=== PATIENT | female | born 1985 | race Caucasian/White ===

== ENCOUNTER 2016-07-24 15:01 | Emergency (ER) | payer SELFPAY ==
[~2016-07-24] VITALS: Ht 167.6 cm; Wt 70.5 kg
[~2016-07-24 15:01] MED LIST: ATIVAN 0.50.5 MG/TAB PO; BACTRIM DS 8001 TAB PO; CELEXA 20MG20 MG/TAB PO; CELEXA10 MG PO; CEPHALEXIN500 M1 PO; CLEOCIN HC150 MG/CAP PO; FLEXERIL 1010 MG/TAB PO; LORTAB 5/500 501 TAB PO; MOTRIN 600600 MG/TAB PO; NAPROSYN500 MG PO; NO HOME MEDICATIONS; NORCO 325 MG-51 TAB PO; PRENATAL VITAMI1 TA5 PO; SEPTRA DS 8001 TAB PO; VALIUM 5MG T5 MG/TAB PO
[2016-07-24 15:03] VITALS: BP 134/67; TEMP 98.3
[2016-07-24 15:47] LABS: BASO % 0.3 % (0.0-2.0); EOS % 0.4 % (0-4.0); GRAN # 3.1 (1.4-6.5); GRAN % 44.7 % (42.2-75.2); HEMATOCRIT 44.2 % (37.0-47.0); HEMOGLOBIN 15.8 g/dl (12.5-16.0); LYMPH # 3.5 (1.2-3.4); LYMPH % 50.4 % (20.0-51.0); MEAN CELL VOLUME 107 fl (80.0-100.0); MEAN CORPUSCULAR HEMOGLOBIN 38 pg (27.0-31.0); MEAN CORPUSCULAR HGB CONC 36 g/dl (33.0-37.0); MEAN PLATELET VOLUME 10.1 fl (7.4-10.4); MONO # 0.3 (0.1-0.6); MONO % 4.1 % (1.7-9.3); PLATELET COUNT 144 K/mm3 (130-400); RED BLOOD COUNT 4.13 M/mm3 (4.10-5.30); REDCELL DISTRIBUTION WIDTH-CV 12.5 % (11.5-14.5); WHITE BLOOD COUNT 6.9 K/mm3 (4.8-10.8)
[2016-07-24 15:58] LABS: ADJUSTED CALCIUM 8.4 mg/dL (8.4-10.2); ALANINE AMINOTRANSFERASE 52 U/L (9-52); ALBUMIN 4.5 gm/dL (3.5-5.0); ALKALINE PHOSPHATASE 126 U/L (50-136); ANION GAP 19 mmol/L (7-16); BILIRUBIN,TOTAL 1.2 mg/dL (0.0-1.0); BLOOD UREA NITROGEN 3 mg/dL (7-17); CALCIUM 8.8 mg/dL (8.4-10.2); CARBON DIOXIDE 24 mmol/L (22-30); CHLORIDE 103 mmol/L (98-107); CREATININE, serum 0.56 mg/dL (0.52-1.25); GLUCOSE 77 mg/dL (74-106); LIPASE 153 U/L (23-300); POTASSIUM 3.9 mmol/L (3.4-5.0); SODIUM 146 mmol/L (137-145); TOTAL PROTEIN 7.5 gm/dL (6.4-8.2)
[2016-07-24 15:59] LABS: C-REACTIVE PROTEIN < 0.5 mg/dL (0.0-0.9)
[2016-07-24 16:03] LABS: PH 6 (5-8); URINE APPEARANCE Clear; URINE BACTERIA Rare /hpf; URINE BILIRUBIN Negative (NEGATIVE); URINE BLOOD Negative (NEGATIVE); URINE COLOR Yellow; URINE GLUCOSE Negative (NEGATIVE); URINE KETONE Trace (NEGATIVE); URINE RBC 0-2 /hpf; URINE UROBILINOGEN Negative (NEGATIVE); URINE WBC 0-2 /hpf
[2016-07-24] MEDS ORDERED: CEPHALEXIN500 M1 PO (17:22)
[2016-07-24 17:29] VITALS: PULSE 78
== END 2016-07-24 17:36 | disposition home or self-care (01) ==
LOC: COL.ER 15:01
PROVIDERS: Emergency Medicine
DX: K59.00 Constipation, unspecified (principal); J02.0 Streptococcal pharyngitis
CPT/HCPCS: J2405; J7030

== ENCOUNTER 2016-07-27 14:12 | Emergency (ER) | payer SELFPAY ==
[~2016-07-27] VITALS: Ht 167.6 cm; Wt 71.8 kg
[2016-07-27 14:14] VITALS: TEMP 98.1
[2016-07-27 16:03] VITALS: BP 127/88; PULSE 77
== END 2016-07-27 16:05 | disposition home or self-care (01) ==
LOC: COL.ER 14:12
DX: K59.00 Constipation, unspecified (principal); J02.0 Streptococcal pharyngitis

== ENCOUNTER 2016-10-03 02:21 | Emergency (ER) | payer SELFPAY ==
[~2016-10-03] VITALS: Ht 167.6 cm; Wt 70.0 kg
[2016-10-03 02:26] VITALS: TEMP 97.1
[2016-10-03 05:10] LABS: PH 7 (5-8); SQUAMOUS EPITHELIAL 0-2 /hpf; URINE APPEARANCE Clear; URINE BACTERIA None Seen /hpf; URINE BILIRUBIN Negative (NEGATIVE); URINE BLOOD Negative (NEGATIVE); URINE COLOR Straw; URINE GLUCOSE Negative (NEGATIVE); URINE KETONE Negative (NEGATIVE); URINE RBC None Seen /hpf; URINE UROBILINOGEN Negative (NEGATIVE); URINE WBC 0-2 /hpf
[2016-10-03 05:14] LABS: HEMATOCRIT 35.7 % (37.0-47.0); HEMOGLOBIN 12.7 g/dl (12.5-16.0); MEAN CELL VOLUME 109 fl (80.0-100.0); MEAN CORPUSCULAR HEMOGLOBIN 39 pg (27.0-31.0); MEAN CORPUSCULAR HGB CONC 36 g/dl (33.0-37.0); PLATELET COUNT 109 K/mm3 (130-400); RED BLOOD COUNT 3.27 M/mm3 (4.10-5.30); REDCELL DISTRIBUTION WIDTH-CV 14.4 % (11.5-14.5); WHITE BLOOD COUNT 2.8 K/mm3 (4.8-10.8)
[2016-10-03 05:15] LABS: ADD PATHOLOGY DIFF REVIEW NO
[2016-10-03 05:24] LABS: ADJUSTED CALCIUM 8.9 mg/dL (8.4-10.2); ALANINE AMINOTRANSFERASE 49 U/L (9-52); ALBUMIN 4.3 gm/dL (3.5-5.0); ALKALINE PHOSPHATASE 121 U/L (50-136); ANION GAP 16 mmol/L (7-16); BILIRUBIN,TOTAL 0.6 mg/dL (0.0-1.0); BLOOD UREA NITROGEN 5 mg/dL (7-17); CALCIUM 9.1 mg/dL (8.4-10.2); CARBON DIOXIDE 27 mmol/L (22-30); CHLORIDE 103 mmol/L (98-107); CREATININE, serum 0.51 mg/dL (0.52-1.25); GLUCOSE 82 mg/dL (74-106); LIPASE 106 U/L (23-300); POTASSIUM 3.9 mmol/L (3.4-5.0); SODIUM 146 mmol/L (137-145); TOTAL PROTEIN 7.1 gm/dL (6.4-8.2)
[2016-10-03 05:25] LABS: C-REACTIVE PROTEIN < 0.5 mg/dL (0.0-0.9)
[2016-10-03 05:31] LABS: BAND 8 % (0-10); METAMYELOCYTE 2 % (0-0); NEUTROPHILS 22 % (42.0-75.2); TOTAL CELLS COUNTED 102
[2016-10-03 05:32] LABS: STOMATOCYTE 1+; TARGET CELLS 2+
[2016-10-03 05:33] LABS: ANISOCYTOSIS 2+; POIKILOCYTOSIS 2+
[2016-10-03] MEDS ORDERED: PROTONIX 40MG T40 MG PO (05:54)
[2016-10-03 06:01] VITALS: BP 130/82; PULSE 78
== END 2016-10-03 06:02 | disposition home or self-care (01) ==
LOC: COL.ER 02:21
PROVIDERS: Emergency Medicine
DX: R10.10 Upper abdominal pain, unspecified (principal); D72.819 Decreased white blood cell count, unspecified; D72.820 Lymphocytosis (symptomatic); F17.210 Nicotine dependence, cigarettes, uncomplicated; Z32.02 Encounter for pregnancy test, result negative; Z90.49 Acquired absence of other specified parts of digestive tract

== ENCOUNTER 2017-10-20 08:11 | Emergency (ER) | payer SELFPAY ==
[~2017-10-20] VITALS: Ht 167.6 cm; Wt 70.9 kg
[~2017-10-20 08:11] MED LIST changes: +PROTONIX 40MG T40 MG PO
[2017-10-20 08:16] VITALS: TEMP 98.3
[2017-10-20 08:47] LABS: BASO % 0.2 % (0.0-2.0); GRAN # 5.9 (1.4-6.5); GRAN % 64.2 % (42.2-75.2); HEMATOCRIT 42.7 % (37.0-47.0); HEMOGLOBIN 15.8 g/dl (12.5-16.0); LYMPH # 2.8 (1.2-3.4); LYMPH % 29.8 % (20.0-51.0); MEAN CELL VOLUME 100 fl (80.0-100.0); MEAN CORPUSCULAR HEMOGLOBIN 37 pg (27.0-31.0); MEAN CORPUSCULAR HGB CONC 37 g/dl (33.0-37.0); MEAN PLATELET VOLUME 9.6 fl (7.4-10.4); MONO # 0.5 (0.1-0.6); MONO % 5.6 % (1.7-9.3); PLATELET COUNT 241 K/mm3 (130-400); RED BLOOD COUNT 4.28 M/mm3 (4.10-5.30); REDCELL DISTRIBUTION WIDTH-CV 12.9 % (11.5-14.5)
[2017-10-20 08:53] LABS: ALBUMIN 4.9 gm/dL (3.5-5.0); BILIRUBIN,TOTAL 0.9 mg/dL (0.0-1.0); CALCIUM 9.5 mg/dL (8.4-10.2); CREATININE, serum 0.6 mg/dL (0.52-1.25); MAGNESIUM 1.4 mg/dL (1.6-2.3); POTASSIUM 3.7 mmol/L (3.4-5.0); TOTAL PROTEIN 8.5 gm/dL (6.4-8.2)
[2017-10-20 09:54] LABS: COLLECTION METHOD CLEAN CATCH
[2017-10-20 10:00] LABS: MUCOUS Present /lpf; PH 7 (5-8); SQUAMOUS EPITHELIAL 0-2 /hpf; URINE APPEARANCE Clear; URINE BACTERIA None Seen /hpf; URINE BILIRUBIN Negative (NEGATIVE); URINE BLOOD Negative (NEGATIVE); URINE COLOR Yellow; URINE GLUCOSE Negative (NEGATIVE); URINE KETONE 2+ (NEGATIVE); URINE LEUKOCYTE ESTERASE Negative (NEGATIVE); URINE NITRATE Negative (NEGATIVE); URINE PROTEIN(semi-quant) 2+ (NEGATIVE); URINE RBC 0-2 /hpf; URINE UROBILINOGEN Negative (NEGATIVE)
[2017-10-20] MEDS ORDERED: ZOFRAN ODT4 MG PO (11:53)
[2017-10-20 12:25] VITALS: BP 128/69; PULSE 72
== END 2017-10-20 12:27 | disposition home or self-care (01) ==
LOC: COL.ER 08:11
PROVIDERS: Nurse Practitioner
DX: F10.239 Alcohol dependence with withdrawal, unspecified (principal); R11.10 Vomiting, unspecified; F17.210 Nicotine dependence, cigarettes, uncomplicated; F12.90 Cannabis use, unspecified, uncomplicated
CPT/HCPCS: J2060; J2405; J2550; J7030

== ENCOUNTER → 2018-03-16 | Outpatient (CLI) | payer SELFPAY ==
[~2018-03-16] MED LIST changes: +ZOFRAN ODT4 MG PO
[2018-03-16 08:10] LABS: COLLECTION METHOD CLEAN CATCH
[2018-03-16 08:14] LABS: MEAN CELL VOLUME 107 fl (80.0-100.0); MEAN CORPUSCULAR HEMOGLOBIN 38 pg (27.0-31.0); MEAN CORPUSCULAR HGB CONC 36 g/dl (33.0-37.0); PLATELET COUNT 94 K/mm3 (130-400); RED BLOOD COUNT 3.14 M/mm3 (4.10-5.30); REDCELL DISTRIBUTION WIDTH-CV 12.6 % (11.5-14.5)
[2018-03-16 08:18] LABS: HEMATOCRIT 33.7 % (37.0-47.0)
[2018-03-16 08:22] LABS: MUCOUS Present /lpf; PH 7 (5-8); URINE APPEARANCE Clear; URINE BACTERIA None Seen /hpf; URINE BILIRUBIN Negative (NEGATIVE); URINE BLOOD 1+ (NEGATIVE); URINE COLOR Yellow; URINE GLUCOSE Negative (NEGATIVE); URINE KETONE Negative (NEGATIVE); URINE LEUKOCYTE ESTERASE Negative (NEGATIVE); URINE NITRATE Negative (NEGATIVE); URINE PROTEIN(semi-quant) Negative (NEGATIVE); URINE RBC 0-2 /hpf; URINE UROBILINOGEN Negative (NEGATIVE); URINE WBC 0-2 /hpf
[2018-03-16 08:24] LABS: ALBUMIN 4.6 gm/dL (3.5-5.0); BILIRUBIN,TOTAL 0.9 mg/dL (0.0-1.0); CALCIUM 9.4 mg/dL (8.4-10.2); CREATININE, serum 0.47 mg/dL (0.52-1.25); POTASSIUM 3.7 mmol/L (3.4-5.0); TOTAL PROTEIN 7.7 gm/dL (6.4-8.2)
[2018-03-16 08:54] LABS: THYROID STIMULATING HORMONE 1.21 uIU/mL (0.465-4.680)
[2018-03-16 11:41] LABS: CHOLESTEROL RISK RATIO 1.8
== END ==
LOC: COL.CARD 07:30
PROVIDERS: Physician Assistant
DX: F41.9 Anxiety disorder, unspecified (principal); R11.10 Vomiting, unspecified; F10.10 Alcohol abuse, uncomplicated; F17.200 Nicotine dependence, unspecified, uncomplicated; R00.0 Tachycardia, unspecified

== ENCOUNTER 2018-03-24 14:00 | Inpatient (IN) | payer OTHER ==
[~2018-03-24] VITALS: Ht 170.2 cm; Wt 69.8 kg
[2018-03-24 14:38] LABS: BASO % 0.6 % (0.0-2.0); GRAN % 72.4 % (42.2-75.2); HEMOGLOBIN 13.3 g/dl (12.5-16.0); LYMPH # 1.2 (1.2-3.4); LYMPH % 17.3 % (20.0-51.0); MEAN CELL VOLUME 106 fl (80.0-100.0); MEAN CORPUSCULAR HEMOGLOBIN 38 pg (27.0-31.0); MEAN CORPUSCULAR HGB CONC 36 g/dl (33.0-37.0); MEAN PLATELET VOLUME 10.5 fl (7.4-10.4); MONO # 0.7 (0.1-0.6); MONO % 9.4 % (1.7-9.3); PLATELET COUNT 99 K/mm3 (130-400); REDCELL DISTRIBUTION WIDTH-CV 12.8 % (11.5-14.5)
[2018-03-24 14:48] LABS: ALBUMIN 5.3 gm/dL (3.5-5.0); BILIRUBIN,TOTAL 1.5 mg/dL (0.0-1.0); CALCIUM 9.7 mg/dL (8.4-10.2); CREATININE, serum 0.58 mg/dL (0.52-1.25); MAGNESIUM 1.3 mg/dL (1.6-2.3); POTASSIUM 3.6 mmol/L (3.4-5.0); TOTAL PROTEIN 8.9 gm/dL (6.4-8.2)
[2018-03-24 15:28] LABS: TSH w REFLEX 1.46 uIU/mL (0.465-4.680)
--- NOTE | 2018-03-24 16:47 | NUR ---
report received from ED nurse.patient to be transported to room 354 shortly.
[2018-03-24 17:00] LABS: PROTHROMBIN TIME 11.3 SECONDS (9.7-12.8)
--- NOTE | 2018-03-24 17:00 | NUR ---
Pt arrived to room 354.ambulates with steady gait to bed.pt oriented to room.no needs voiced at this time.call light in reach
[2018-03-24 17:02] LABS: PARTIAL THROMBOPLASTIN TIME 28.8 SECONDS (26.0-37.0)
[2018-03-24 17:40] VITALS: BP 132/88; PULSE 103; TEMP 99.8
[2018-03-24 18:21] LABS: COLLECTION METHOD CLEAN CATCH
--- NOTE | 2018-03-24 18:30 | NUR ---
assessment complete.patient sitting up in bed a/ox4.denies pain or discomfort at this time.LSCTA.breathing even and unlabored.pt on CIWA protocol and scoring 3.tremors visibly noted.pt is anxious.all meds given.IVF infusing.UA collected and sent to lab..pt on seizures precautions per protocol.denies further needs.will continue to monitor.call light in reach
[2018-03-24 18:33] LABS: MUCOUS Present /lpf; PH 7 (5-8); URINE APPEARANCE Hazy; URINE BACTERIA None Seen /hpf; URINE BILIRUBIN Negative (NEGATIVE); URINE BLOOD Negative (NEGATIVE); URINE COLOR Yellow; URINE GLUCOSE Negative (NEGATIVE); URINE KETONE 2+ (NEGATIVE); URINE LEUKOCYTE ESTERASE Negative (NEGATIVE); URINE NITRATE Negative (NEGATIVE); URINE PROTEIN(semi-quant) 2+ (NEGATIVE); URINE RBC 0-2 /hpf; URINE WBC 0-2 /hpf
[2018-03-24 18:48] LABS: TRICYCLIC ANTIDEPRESS URINE NEGATIVE
--- NOTE | 2018-03-24 18:57 | NUR ---
report given to ILDA Harrison
--- NOTE | 2018-03-24 19:53 | NUR ---
Pt in bed resting, family in room with Pt, visible tremblin in the hands noted, denies pain at this time. Shift assessment complete, left Pt call light in reach, bed in lowest position.
[2018-03-24 20:57] VITALS: BP 133/86; PULSE 126; TEMP 99.8
[2018-03-24 22:21] VITALS: BP 133/93; PULSE 109; TEMP 99.8
[2018-03-25] VITALS (11 sets, daily range): BP systolic 121–140; BP diastolic 82–102; PULSE 76–130; TEMP 98.3–100.3
--- NOTE | 2018-03-25 07:18 | NUR ---
Pt slept some during the night, no C/O pain she is scoring 7-9 on the detox scale, VS have been stable.
[2018-03-25 07:23] LABS: BASO % 0.3 % (0.0-2.0); GRAN # 1.4 (1.4-6.5); GRAN % 44.5 % (42.2-75.2); HEMOGLOBIN 11.6 g/dl (12.5-16.0); LYMPH # 1.1 (1.2-3.4); LYMPH % 36.9 % (20.0-51.0); MEAN CELL VOLUME 109 fl (80.0-100.0); MEAN CORPUSCULAR HEMOGLOBIN 38 pg (27.0-31.0); MEAN CORPUSCULAR HGB CONC 35 g/dl (33.0-37.0); MEAN PLATELET VOLUME 10.3 fl (7.4-10.4); MONO # 0.5 (0.1-0.6); PLATELET COUNT 56 K/mm3 (130-400); RED BLOOD COUNT 3.07 M/mm3 (4.10-5.30); REDCELL DISTRIBUTION WIDTH-CV 13.1 % (11.5-14.5)
[2018-03-25 07:24] LABS: HEMATOCRIT 33.5 % (37.0-47.0)
[2018-03-25 07:57] LABS: ALBUMIN 4.1 gm/dL (3.5-5.0); BILIRUBIN,TOTAL 1.6 mg/dL (0.0-1.0); CALCIUM 8.1 mg/dL (8.4-10.2); CREATININE, serum 0.52 mg/dL (0.52-1.25); MAGNESIUM 1.7 mg/dL (1.6-2.3); POTASSIUM 3.3 mmol/L (3.4-5.0); TOTAL PROTEIN 7.1 gm/dL (6.4-8.2)
--- NOTE | 2018-03-25 08:30 | NUR ---
Assessment complete.patient awake,a/ox4.denies pain or discomfort at this time.VSS.breathing even and unlabored.LSCTA.tremors visual on assessment.pt denies any N/V.ivf infusing.pt pleasant and cooeperative with cares.remains on CIWA protocol.pt on seizure precautions.pt denies any needs at this time.will continue to monitor.call light in reach
--- NOTE | 2018-03-25 10:05 | NUR ---
PRATIBHA and PRATIBHA student met with the patient to discuss discharge plan. The patient lives in [place] with her boyfriend. She reports independence with ADLs and does not use any DME. The patient goes to the [facility] and she receives her medications at the [facility]. She reports occasional difficulties affording her meds. She states that her mother sometimes helps her with any meds she may need and that she has some prescription cards. PRATIBHA informed the patient on how the [facility] can also provide prescription assistance. The patient does not have advanced directives and she was not interested in completing them at this time. The patient is self pay. PRATIBHA consulted financial couselorRacheal. Racheal plans to meet with the patient this afternoon. PRATIBHA also discussed the patient's alcohol use. The patient reports that she spoke to the psychiatrist this morning and that they went over inpatient and outpatient options. She reports that she would prefer outpatient alcohol treatment and that she would like to do the research and look into the different options around [place]. The patient states that her boyfriend also has alcohol abuse and that she is planning on moving in with her mother. SW to continue to follow.
--- NOTE | 2018-03-25 11:01 | NUR ---
Initial visit; Patient thanked Digital Strategy Specialist for looking in on her and offering God's blessings and spiritual care.
--- NOTE | 2018-03-25 19:08 | NUR ---
report given to ILDA Forrest.
--- NOTE | 2018-03-25 20:02 | NUR ---
PT IN BED WITH HOB ELEVATED TO 60 DEGREE ANGLE. PT IS WATCHING TV, DENIES PAIN. PT DOES FEEL ANXIETY AND DID SCORE A 10 ON DETOX, 2MG IV ATIVAN GIVEN. PT WAITING FOR FATHER TO COME. PT ATE SUPPER AND IS STILL WORKING ON IT. PT HAS NO FURTHER NEEDS AT THIS TIME, CALL LIGHT WITHIN REACH.
[2018-03-26 00:24] VITALS: BP 133/92; PULSE 99; TEMP 98.7
[2018-03-26 01:36] VITALS: BP 172/99; PULSE 85; TEMP 100
[2018-03-26 02:31] VITALS: BP 108/86; PULSE 92; TEMP 98.7
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
--- NOTE | 2018-03-26 04:15 | NUR ---
PT WAS DRESSED AND CAME TO NURSES'S STATION TO INFORM US THAT SHE WAS LEAVING AMA. PT WAS ASKED TO WAIT TILL MORNING, BUT PT ADVISED THAT SHE JUST COULD NOT STAY. DEVIN BRADSHAW ADVISED HER THAT IT WAS 6 DEGREES OUTSIDE AND IF THERE WAS ANYTHING WE COULD DO TO HAVE HER STAY. PT ADVISED THAT SHE KNEW IT WAS 6 DEGREE OUTSIDE AND THAT HER COAT WAS WARMER THAN IT LOOKED. DEVIN BRADSHAW TOOK HER DOWN TO THE ER AND CALLED A CAB FOR HER AND PAID FOR IT.
== END 2018-03-26 04:15 | disposition left against medical advice (07) | DRG 894 ==
LOC: COL.ER 14:00 → MEDICAL 15:21
PROVIDERS: Emergency Medicine; Physician Assistant; ADMIT Hospitalist
DX: F10.239 Alcohol dependence with withdrawal, unspecified (principal); E87.2 Acidosis; E46 Unspecified protein-calorie malnutrition; F10.24 Alcohol dependence with alcohol-induced mood disorder; Y90.3 Blood alcohol level of 60-79 mg/100 ml; F17.210 Nicotine dependence, cigarettes, uncomplicated; E83.42 Hypomagnesemia; D69.6 Thrombocytopenia, unspecified; F41.0 Panic disorder [episodic paroxysmal anxiety]; E86.0 Dehydration; Z68.24 Body mass index [BMI] 24.0-24.9, adult
CPT/HCPCS: 99222-AI; J1650; J2060; J2405; J3411; J3475; J7030

== ENCOUNTER 2018-08-13 13:29 | Emergency (ER) | payer SELFPAY ==
[~2018-08-13] VITALS: Ht 167.6 cm; Wt 65.9 kg
[2018-08-13 13:55] VITALS: BP 149/97
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
[2018-08-13 15:01] LABS: BASO % 0.4 % (0.0-2.0); EOS % 0.2 % (0-4.0); GRAN # 2.7 (1.4-6.5); GRAN % 58.1 % (42.2-75.2); HEMATOCRIT 37.9 % (37.0-47.0); HEMOGLOBIN 13.1 g/dl (12.5-16.0); LYMPH # 1.3 (1.2-3.4); LYMPH % 27.3 % (20.0-51.0); MEAN CELL VOLUME 106 fl (80.0-100.0); MEAN CORPUSCULAR HEMOGLOBIN 37 pg (27.0-31.0); MEAN CORPUSCULAR HGB CONC 35 g/dl (33.0-37.0); MEAN PLATELET VOLUME 9.3 fl (7.4-10.4); MONO # 0.7 (0.1-0.6); MONO % 13.8 % (1.7-9.3); PLATELET COUNT 280 K/mm3 (130-400); RED BLOOD COUNT 3.57 M/mm3 (4.10-5.30)
[2018-08-13 15:11] LABS: ALANINE AMINOTRANSFERASE 39 U/L (9-52); ALBUMIN 4.9 gm/dL (3.5-5.0); ALKALINE PHOSPHATASE 113 U/L (50-136); ANION GAP 15 mmol/L (7-16); AST,SGOT 65 U/L (15-37); BILIRUBIN,TOTAL 1.2 mg/dL (0.0-1.0); BLOOD UREA NITROGEN 10 mg/dL (7-17); CALCIUM 10.4 mg/dL (8.4-10.2); CARBON DIOXIDE 27 mmol/L (22-30); CHLORIDE 97 mmol/L (98-107); CREATININE, serum 0.53 (0.52-1.25); GLUCOSE 112 mg/dL (74-106); SODIUM 139 mmol/L (137-145); TOTAL PROTEIN 8.6 gm/dL (6.4-8.2)
[2018-08-13 15:12] LABS: ALCOHOL(ethanol),MEDICAL < 10 mg/dL
[2018-08-13] MEDS ORDERED: NORCO 325 MG-51 TAB PO (16:28)
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
[2018-08-13 17:13] VITALS: PULSE 66; TEMP 98.8
== END 2018-08-13 17:12 | disposition home or self-care (01) ==
LOC: COL.ER 13:29
PROVIDERS: Emergency Medicine
DX: S00.83XA Contusion of other part of head, initial encounter (principal); S00.93XA Contusion of unspecified part of head, initial encounter; R13.10 Dysphagia, unspecified; Y04.8XXA Assault by other bodily force, initial encounter; Y07.03 Male partner, perpetrator of maltreatment and neglect; Y92.009 Unspecified place in unspecified non-institutional (private) residence as the place of occurrence of the external cause
CPT/HCPCS: J1885; J7030; Q9967

== ENCOUNTER 2019-10-27 12:06 | Inpatient (IN) | payer SELFPAY ==
[~2019-10-27] VITALS: Ht 167.6 cm; Wt 75.0 kg
[2019-10-27] VITALS (439 sets, daily range): BP systolic 111–128; BP diastolic 74–90; PULSE 77–108; TEMP 98.1–98.9; O2SAT 80–100
[2019-10-27] MEDS ORDERED: PROBIOTIC BLEN1 EACH PO (12:25)
[2019-10-27] MEDS ORDERED: ONE-A-DAY ESSE1 EACH PO (12:26)
[2019-10-27 12:51] LABS: COLLECTION METHOD CLEAN CATCH
[2019-10-27 12:56] LABS: BASO % 0.4 % (0.0-2.0); GRAN # 8.1 (1.4-6.5); HEMATOCRIT 42.8 % (37.0-47.0); HEMOGLOBIN 15.1 g/dl (12.5-16.0); LYMPH # 0.8 (1.2-3.4); LYMPH % 8.1 % (20.0-51.0); MEAN CELL VOLUME 103 fl (80.0-100.0); MEAN CORPUSCULAR HEMOGLOBIN 36 pg (27.0-31.0); MEAN CORPUSCULAR HGB CONC 35 g/dl (33.0-37.0); MEAN PLATELET VOLUME 9.6 fl (7.4-10.4); MONO # 0.8 (0.1-0.6); MONO % 8.2 % (1.7-9.3); PLATELET COUNT 201 K/mm3 (130-400); RED BLOOD COUNT 4.17 M/mm3 (4.10-5.30)
[2019-10-27 13:04] LABS: ACETAMINOPHEN < 10 ug/mL (10-30); ALANINE AMINOTRANSFERASE 36 U/L (4-34); ALBUMIN 5.2 gm/dL (3.5-5.0); ALCOHOL(ethanol),MEDICAL 27 mg/dL; ALKALINE PHOSPHATASE 137 U/L (50-136); ANION GAP 24 mmol/L (7-16); AST,SGOT 208 U/L (15-37); BILIRUBIN,TOTAL 1.2 mg/dL (0.0-1.0); BLOOD UREA NITROGEN 6 mg/dL (7-17); CALCIUM 9.9 mg/dL (8.4-10.2); CARBON DIOXIDE 18 mmol/L (22-30); CHLORIDE 100 mmol/L (98-107); CREATININE, serum 0.56 (0.52-1.25); GLUCOSE 85 mg/dL (74-106); POTASSIUM 3.8 mmol/L (3.4-5.0); SALICYLATE < 1.0 mg/dL; SODIUM 141 mmol/L (137-145); TOTAL PROTEIN 8.6 gm/dL (6.4-8.2)
[2019-10-27 13:10] LABS: TRICYCLIC ANTIDEPRESS URINE NEGATIVE
[2019-10-27 13:34] LABS: TSH w REFLEX 0.518 uIU/mL (0.465-4.680)
[2019-10-27 13:35] LABS: MUCOUS Present /lpf; PH 5 (5-8); URINE APPEARANCE Hazy; URINE BACTERIA None Seen /hpf; URINE BILIRUBIN Negative (NEGATIVE); URINE BLOOD Negative (NEGATIVE); URINE COLOR Amber; URINE GLUCOSE Negative (NEGATIVE); URINE KETONE 1+ (NEGATIVE); URINE LEUKOCYTE ESTERASE Negative (NEGATIVE); URINE NITRATE Negative (NEGATIVE); URINE PROTEIN(semi-quant) 2+ (NEGATIVE); URINE RBC 0-2 /hpf; URINE UROBILINOGEN Negative (NEGATIVE)
[2019-10-27 18:36] LABS: CALCIUM 8.8 mg/dL (8.4-10.2); CREATININE, serum 0.55 (0.52-1.25); POTASSIUM 3.6 mmol/L (3.4-5.0)
--- NOTE | 2019-10-27 19:44 | NUR ---
pt has no DVT prophylaxis ordered yet, cathie NATARAJAN notifed.
[2019-10-28] VITALS (596 sets, daily range): BP systolic 104–121; BP diastolic 71–94; PULSE 57–85; TEMP 98.1–99.2; O2SAT 56–100
[2019-10-28 05:18] LABS: BASO % 0.3 % (0.0-2.0); EOS # 0.1 (0.0-0.7); EOS % 1.5 % (0-4.0); GRAN # 1.3 (1.4-6.5); GRAN % 32.3 % (42.2-75.2); LYMPH # 2.1 (1.2-3.4); LYMPH % 52.4 % (20.0-51.0); MEAN CELL VOLUME 106 fl (80.0-100.0); MEAN CORPUSCULAR HGB CONC 35 g/dl (33.0-37.0); MEAN PLATELET VOLUME 9.6 fl (7.4-10.4); MONO # 0.5 (0.1-0.6); MONO % 13.2 % (1.7-9.3); PLATELET COUNT 164 K/mm3 (130-400); RED BLOOD COUNT 3.12 M/mm3 (4.10-5.30); REDCELL DISTRIBUTION WIDTH-CV 13.2 % (11.5-14.5)
[2019-10-28 05:20] LABS: HEMATOCRIT 33.2 % (37.0-47.0); MEAN CORPUSCULAR HEMOGLOBIN 37 pg (27.0-31.0)
[2019-10-28 05:22] LABS: HEMOGLOBIN 11.5 g/dl (12.5-16.0)
[2019-10-28 05:25] LABS: CALCIUM 8.6 mg/dL (8.4-10.2); CREATININE, serum 0.55 (0.52-1.25); POTASSIUM 3.6 mmol/L (3.4-5.0)
--- NOTE | 2019-10-28 07:12 | NUR ---
REPORT GIVEN TO ILDA CABRERA.
[2019-10-28] MEDS ORDERED: FOLIC ACID 11 MG/TA1 PO (09:56)
[2019-10-28] MEDS ORDERED: THIAMINE 1100 MG/TAB PO (09:56)
--- NOTE | 2019-10-28 11:00 | NUR ---
Pt stable at discharge. PT requests to ambulate to ride and does so without complication. PT understands education and verbalizes agreement of attending follow up appointment
--- NOTE | 2019-10-28 11:07 | NUR ---
Weatherization Technician contacted patient by phone to discuss discharge planning as patient is in contact isolation. Patient to discharge home today and states she lives with her father, Lopez (ph#[phone]). Patient states her mother, Nadine Funez (ph#[phone]) is the best emergency contact for her and reports her mother will be here to pick her up soon. Patient does not currently have primary care set up and is agreeable to have appointment made at [facility] as she does not currently have insurance coverage. Racheal Financial Counselor has been consulted. Patient does not have Advance Directives but states her mother is looking into this for her. Patient is interested in taking home form, PRATIBHA provided. Patient does not use any DME and reports independence with ADLS. SW addressed alcohol use with patient who advised she has been in contact with Jason and is being sent paperwork to set up an appointment. Patient states she was at [facility] for an appointment but was sent to the ED as her blood alcohol was too high. Patient states she does not need SW to make her an appointment as she is already set up with Jason. PRATIBHA provided list of drug/alcohol resources to patient. PRATIBHA contacted [facility] and scheduled appointment for 11/10/19 @ 1500. PRATIBHA provided appointment to RNHetal who included appointment date, time, and what to bring in discharge paperwork. PRATIBHA faxed records to [facility] @ fax#[phone]. No additional needs identified at this time.
== END 2019-10-28 10:59 | disposition home or self-care (01) | DRG 897 ==
LOC: COL.ER 12:06 → ICU 14:39
PROVIDERS: Emergency Medicine; Internal Medicine Critical Care Medicine; ADMIT Student in an Organized Health Care Education/Training Program
DX: F10.10 Alcohol abuse, uncomplicated (principal); E87.2 Acidosis; R00.0 Tachycardia, unspecified; F32.9 Major depressive disorder, single episode, unspecified; F41.9 Anxiety disorder, unspecified; R79.89 Other specified abnormal findings of blood chemistry; F17.210 Nicotine dependence, cigarettes, uncomplicated
CPT/HCPCS: 99223-AI; 99239; J1644; J2060; J2405; J3411; J7030

== ENCOUNTER 2020-04-12 15:43 | Emergency (ER) | payer SELFPAY ==
[~2020-04-12] VITALS: Ht 167.6 cm; Wt 72.7 kg
[~2020-04-12 15:43] MED LIST changes: +FOLIC ACID 11 MG/TA1 PO; +ONE-A-DAY ESSE1 EACH PO; +PROBIOTIC BLEN1 EACH PO; +THIAMINE 1100 MG/TAB PO
[2020-04-12 15:59] LABS: HEMATOCRIT 44.7 % (37.0-47.0); HEMOGLOBIN 15.9 g/dl (12.5-16.0); MEAN CELL VOLUME 97 fl (80.0-100.0); MEAN CORPUSCULAR HEMOGLOBIN 34 pg (27.0-31.0); MEAN CORPUSCULAR HGB CONC 36 g/dl (33.0-37.0); MEAN PLATELET VOLUME 9.3 fl (7.4-10.4); PLATELET COUNT 314 K/mm3 (130-400); RED BLOOD COUNT 4.63 M/mm3 (4.10-5.30); REDCELL DISTRIBUTION WIDTH-CV 12.2 % (11.5-14.5)
[2020-04-12 16:08] LABS: ALBUMIN 4.9 gm/dL (3.5-5.0); BILIRUBIN,TOTAL 0.4 mg/dL (0.0-1.0); CALCIUM 8.9 mg/dL (8.4-10.2); CREATININE, serum 0.55 (0.52-1.25); POTASSIUM 3.9 mmol/L (3.4-5.0); TOTAL PROTEIN 8.1 gm/dL (6.4-8.2)
[2020-04-12 16:30] LABS: BAND 2 % (0-10); EOSINOPHIL 1 % (0-4); LYMPHOCYTE 68 % (20.0-51.0); NEUTROPHILS 25 % (42.0-75.2)
[2020-04-12 16:32] LABS: TEAR DROP CELLS 1+
[2020-04-12 17:36] LABS: ACETAMINOPHEN < 10 ug/mL (10-30); SALICYLATE < 1.0 mg/dL
[2020-04-12 17:58] LABS: COLLECTION METHOD CLEAN CATCH
[2020-04-12 18:03] LABS: PH 6 (5-8); SQUAMOUS EPITHELIAL 0-2 /hpf; URINE APPEARANCE Clear; URINE BACTERIA None Seen /hpf; URINE BILIRUBIN Negative (NEGATIVE); URINE BLOOD 1+ (NEGATIVE); URINE COLOR Straw; URINE GLUCOSE Negative (NEGATIVE); URINE KETONE Negative (NEGATIVE); URINE LEUKOCYTE ESTERASE Negative (NEGATIVE); URINE NITRATE Negative (NEGATIVE); URINE PROTEIN(semi-quant) Negative (NEGATIVE); URINE RBC 0-2 /hpf; URINE UROBILINOGEN Negative (NEGATIVE)
[2020-04-12 18:13] LABS: TRICYCLIC ANTIDEPRESS URINE NEGATIVE
[2020-04-12 19:35] VITALS: BP 130/93; PULSE 102
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
== END 2020-04-12 19:35 | disposition home or self-care (01) ==
LOC: COL.ER 15:43
PROVIDERS: Physician Assistant
DX: F10.129 Alcohol abuse with intoxication, unspecified (principal)
CPT/HCPCS: J3411; J3475; J7030

== ENCOUNTER 2021-11-13 18:45 | Emergency (ER) | payer SELFPAY ==
[~2021-11-13] VITALS: Ht 167.6 cm; Wt 83.8 kg
[~2021-11-13 18:45] MED LIST changes: +K-DUR20 MEQ PO
[2021-11-13 20:42] LABS: BASO % 0.3 % (0.0-2.0); EOS # 0.1 K/mm3 (0.0-0.7); GRAN # 4.4 K/mm3 (1.4-6.5); GRAN % 60.2 % (42.2-75.2); HEMATOCRIT 40.6 % (37.0-47.0); MEAN CELL VOLUME 97 fl (80.0-100.0); MEAN CORPUSCULAR HEMOGLOBIN 34 pg (27-31); MEAN CORPUSCULAR HGB CONC 35 g/dl (33.0-37.0); MEAN PLATELET VOLUME 10.2 fl (7.4-10.4); MONO # 0.7 K/mm3 (0.1-0.6); MONO % 10.2 % (1.7-9.3); PLATELET COUNT 164 K/mm3 (130-400); RED BLOOD COUNT 4.19 M/mm3 (4.10-5.30); REDCELL DISTRIBUTION WIDTH-CV 11.9 % (11.5-14.5)
[2021-11-13 20:53] LABS: ALANINE AMINOTRANSFERASE 16 U/L (0-55); ALBUMIN 4.3 gm/dL (3.5-5.0); ALKALINE PHOSPHATASE 86 U/L (40-150); ANION GAP 13 mmol/L (7-16); AST,SGOT 37 U/L (5-34); BILIRUBIN,TOTAL 0.9 mg/dL (0.2-1.2); BLOOD UREA NITROGEN 12 mg/dL (7-19); CALCIUM 9.8 mg/dL (8.4-10.2); CARBON DIOXIDE 27 mmol/L (22-29); CHLORIDE 96 mmol/L (98-107); CREATININE, serum 0.72 mg/dL (0.57-1.11); GLUCOSE 106 mg/dL (70-99); POTASSIUM 3.6 mmol/L (3.5-4.5); SODIUM 136 mmol/L (136-145); TOTAL PROTEIN 7.9 gm/dL (6.2-8.1)
[2021-11-13 20:55] LABS: HEMOGLOBIN 14.3 g/dl (12.5-16.0)
[2021-11-13 21:02] LABS: TROPONIN-I < 0.010 ng/mL (0.00-0.033)
[2021-11-13] MEDS ORDERED: CARAFATE S1 GM/10 ML PO (22:17)
[2021-11-13 23:07] VITALS: BP 139/94; PULSE 81; TEMP 98.1
== END 2021-11-13 23:07 | disposition home or self-care (01) ==
LOC: COL.ER 18:45
PROVIDERS: Personal Emergency Response Attendant
DX: K20.90 Esophagitis, unspecified without bleeding (principal); F17.210 Nicotine dependence, cigarettes, uncomplicated; Z28.310 Unvaccinated for COVID-19
CPT/HCPCS: J2270; J2405; J7030

== ENCOUNTER 2023-09-02 10:32 | Inpatient (IN) | payer SELFPAY ==
[2023-09-02] VITALS (9 sets, daily range): BP systolic 111–127; BP diastolic 63–74; PULSE 108–130; TEMP 98.1–99.2
[~2023-09-02] VITALS: Ht 170.2 cm; Wt 81.0 kg
[~2023-09-02 10:32] MED LIST changes: +CARAFATE S1 GM/10 ML PO
[2023-09-02] MEDS ORDERED: LR 1,000 ML IV ONE (11:00)
[2023-09-02 11:14] LABS: BASO % 0.2 % (0.0-2.0); GRAN % 76.4 % (42.2-75.2); HEMATOCRIT 37.9 % (37.0-47.0); HEMOGLOBIN 13.8 g/dl (12.5-16.0); LYMPH # 1.9 K/mm3 (1.2-3.4); LYMPH % 13.4 % (20.0-51.0); MEAN CELL VOLUME 99 fl (80.0-100.0); MEAN CORPUSCULAR HEMOGLOBIN 36 pg (27-31); MEAN CORPUSCULAR HGB CONC 36 g/dl (33.0-37.0); MONO # 1.4 K/mm3 (0.1-0.6); MONO % 9.5 % (1.7-9.3); PLATELET COUNT 85 K/mm3 (130-400); RED BLOOD COUNT 3.84 M/mm3 (4.10-5.30)
[2023-09-02 11:31] LABS: ALBUMIN 4.2 g/dL (3.5-5.0); BILIRUBIN,TOTAL 1.5 mg/dL (0.2-1.2); CALCIUM 9.6 mg/dL (8.4-10.2); CREATININE, serum 1.08 mg/dL (0.57-1.11); TOTAL PROTEIN 7.6 g/dl (6.2-8.1)
[2023-09-02 11:36] LABS: POTASSIUM 2.3 mEq/L (3.5-4.5)
[2023-09-02] MEDS ORDERED: NS 1,000 ML IV ONE (12:45)
[2023-09-02] MEDS ORDERED: Nicotine 21 MG DAILY PATCH TD SCH (13:27)
[2023-09-02] MEDS ORDERED: Potassium Bicarbonate/Citrate 20 MEQ Effervescent TAB PO SCH (13:30)
[2023-09-02] MEDS ORDERED: Mag/Al Hydrox/Simeth Susp 30 ML CUP PO PRN (13:30)
[2023-09-02] MEDS ORDERED: Ondansetron 4 MG/2 ML VIAL IV PRN (13:30)
[2023-09-02] MEDS ORDERED: LORazepam 2 MG/ML 1 ML VIAL IV PRN (13:30)
[2023-09-02] MEDS ORDERED: *Potassium Replacement Protocol MC SCH (13:30)
[2023-09-02] MEDS ORDERED: diazePAM 10 MG TAB PO SCH (13:30)
[2023-09-02] MEDS ORDERED: Folic Acid 1 MG,Thiamine 200 MG in NS 1,000 ML IV ONE (14:00)
--- NOTE | 2023-09-02 14:10 | NUR ---
PT ARRIVED TO ROOM 356 VIA WHEELCHAIR. PT ESCORTED TO EOB AND FALL PRECAUTIONS PLACED. PT HAS A HX OF MRSA, CONTACT PRECAUTIONS ALSO PUT IN PLACE. PT IS ON CIWA PRECAUTIONS ALONG WITH SEIZURE PRECAUTIONS D/T HX OF SEIZURES. PT APPEARS ANXIOUS AND HAS SCATTERED BRUISING THROUGHOUT HER BODY. PT A&OX4. PT REPORTS 5/10 PAIN LOCATED ON HER TONGUE. PT DENIES PAIN MEDICATION AT THIS TIME. INTITAL ASSESSMENT COMPLETED AT THIS TIME. VSS- SEE FLOWSHET. CALL LIGHT WIHTIN REACH. BED ALARM ON.
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
[2023-09-02 15:38] LABS: COLLECTION METHOD CLEAN CATCH
[2023-09-02 15:47] LABS: PH 6.5 (5.0-8.5); URINE APPEARANCE CLEAR (CLEAR/HAZY); URINE BLOOD 3+ (NEGATIVE); URINE COLOR YELLOW (YELLOW); URINE GLUCOSE NEGATIVE (NEGATIVE); URINE KETONE 3+ (NEGATIVE); URINE NITRATE NEGATIVE (NEGATIVE); URINE PROTEIN(semi-quant) 1+ (NEGATIVE); URINE UROBILINOGEN 0.2 E.U/dL (0.2-1.0)
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
[2023-09-02] MEDS ORDERED: LAMICTAL 100MG100 MG PO (16:09)
[2023-09-02 16:23] LABS: TRICYCLIC ANTIDEPRESS URINE NEGATIVE (NEGATIVE)
[2023-09-02] MEDS ORDERED: NS 1,000 ML IV SCH (17:00)
[2023-09-02] MEDS ORDERED: Multivitamin TAB PO SCH (17:00)
--- NOTE | 2023-09-02 19:49 | NUR ---
PATIENT TACHYCARDIC AT 125 BPM. ENTERED PATIENT ROOM AND SHE IS AXO X4 MEWS SCORE 4 WITH CIWA SCORE OF 5. PATIENT ADMITS TO EXTENSIVE UNTREATED TOOTH DECAY. CALL PLACED TO HOSPITALIST COSME RODRIGUEZ FOR CLINDAMYCIN AND TO GIVE ATIVAN WITHIN PARAMETERS IF CIWA PROTOCOL GIVEN. ALERTED CHARGE NURSE JENISE OF MEWS SCORE OF 4.
[2023-09-02] MEDS ORDERED: Clindamycin 150 MG CAP PO SCH (20:00)
--- NOTE | 2023-09-02 20:35 | NUR ---
UPON SHIFT ASSESSMENT, JOSE WAS AXO X 4 IN BED. CURRENT CIWA SCORE IS A 5. SHE EXHIBITS DIFFUSE BRUISING THROUGHOUT HER BODY IN VARIOUS STAGES OF HEALING. SW IS AWARE AND WILL CONSULT TOMORROW. PROFOUND TONGUE LACERATION TO RT SIDE NOTED. AIRWAY IS PATENT. PATIENT IS PLEASANT. DENIES ANY NEEDS AT THIS TIME. PHYSICAL ASSESSMENT COMPLETE.
[2023-09-02] MEDS ORDERED: Lidocaine 4% Topical Patch TP SCH (23:45)
[2023-09-03] VITALS (19 sets, daily range): BP systolic 108–140; BP diastolic 65–88; PULSE 102–122; TEMP 96.6–99
[2023-09-03 06:33] LABS: ALBUMIN 3.2 g/dL (3.5-5.0); BILIRUBIN,TOTAL 1.1 mg/dL (0.2-1.2); CALCIUM 8.5 mg/dL (8.4-10.2); CREATININE, serum 0.64 mg/dL (0.57-1.11); MAGNESIUM 2.2 mg/dL (1.6-2.6); TOTAL PROTEIN 5.5 g/dl (6.2-8.1)
[2023-09-03 06:37] LABS: POTASSIUM 2.6 mEq/L (3.5-4.5)
--- NOTE | 2023-09-03 06:42 | NUR ---
CRITICAL LAB ATTEMPTED TO CALL HOSPITALIST-NO ANSWER WILL PASS TO DAY SHIFT. K+ 2.6 AND CHLORIDE 88
--- NOTE | 2023-09-03 07:15 | NUR ---
SEAMUS SHIFT REPORT RECIEVED AT THIS TIME.
[2023-09-03 07:20] LABS: BASO % 0.2 % (0.0-2.0); EOS % 0.2 % (0.0-4.0); GRAN % 77.1 % (42.2-75.2); HEMATOCRIT 26.6 % (37.0-47.0); HEMOGLOBIN 9.9 g/dl (12.5-16.0); LYMPH # 0.8 K/mm3 (1.2-3.4); LYMPH % 11.8 % (20.0-51.0); MEAN CELL VOLUME 101 fl (80.0-100.0); MEAN CORPUSCULAR HEMOGLOBIN 38 pg (27-31); MEAN CORPUSCULAR HGB CONC 37 g/dl (33.0-37.0); MEAN PLATELET VOLUME 11.5 fl (7.4-10.4); MONO # 0.7 K/mm3 (0.1-0.6); MONO % 10.4 % (1.7-9.3); PLATELET COUNT 60 K/mm3 (130-400); RED BLOOD COUNT 2.64 M/mm3 (4.10-5.30)
[2023-09-03 07:34] LABS: PROTHROMBIN TIME 11.1 SECONDS (9.7-12.8)
[2023-09-03] MEDS ORDERED: Potassium Bicarbonate/Citrate 20 MEQ Effervescent TAB PO SCH (08:30)
[2023-09-03] MEDS ORDERED: Thiamine 100 MG TAB PO SCH (09:00)
[2023-09-03] MEDS ORDERED: Folic Acid 1 MG TAB PO SCH (09:00)
--- NOTE | 2023-09-03 11:46 | NUR ---
CRITICAL LAB VALUES REPORTED TO MD. NO NEW ORDERS AT THIS TIME.
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
--- NOTE | 2023-09-03 14:45 | NUR ---
PATIENT RESTING IN BED, PATIENT IS SLEEPY AT THIS TIME. SHE DENIES ANY COMPLAINTS AT THIS TIME. CALL LIGHT WTIHIN REACH, HER MOTHER IS AT BEDSIDE. FALL PRECAUTIOSN IN PLACE.
--- NOTE | 2023-09-03 16:02 | NUR ---
wind turbine sheet metal worker was notified by patient's nurse that patient has bruising on her body and she reported to nursing that it was from falling. SW and SW Student met with patient and her mother, Nadine Hinton, P# [phone], to discuss discharge planning. Patient lives in [place] in low income housing by herself. Patient reports her father pays for her housing and her medications. Patient reports she has not been to her PCP in the [facility] but she has been to the [facility]. Pharmacy is [facility] in [facility]. Patient does not have insurance, social studies teacher explained she would request financial counseling to meet with patient to complete financial assistance and Medicaid application. Patient did not have a DPOA-HC but was wanting to complete one during her hospital stay. Patient explained that a DPOA-HC is a document appointing someone to make medical decisions for her if she were unable to do so. Patient appointed her mother as primary and her father as secondary. SW assisted her with completing the form. SW and SW Student witnessed patient's signature. SW made copies, placed copy in chart and provided copies and original to patient. Patient has no DME and reports to be independent with ADLS. Patient reports she has running water and electricity at her apartment. Patient stated she does not work at this time and her mother expressed she has had difficulty getting a job due to her medical conditions, which she reported PTSD and depression were the main two affecting her daily life. Patient's mother exppressed she has been trying to get her established with social security and wanted to know if the hospital was a "SOAR" worker. SW explained she is not, SW explained what she could do is help the patient call social security and get her established with an appointment. Patient's mother expressed they need her medical diagnoses to send to social security. SW explained she would have to obtain the medical diagnoses from medical records as she is unable to release medical documentation to them. SW discussed the bruising mentioned by the nursing department. Patient stated she got them from falling. SW asked if she lives with anyone. Patient stated no. SW asked if patient was around anyone when these bruising appeared. Patient stated no she was home alone. SW discussed safety at home and safety around the people she affiliates herself with, patient stated she feels safe at home and around her friends and family. Patient stated the bruising is from her falls. Patient's mother reported patient has had seizure activity and believes the bruising on her tongue is from biting her tongue when she fell or she had a seizure. SW discussed drug and alcohol resources. Patient stated she has been to [facility] before and they work but she has relapsed. SW asked if she would be open to inpatient again, patient stated no. Patient explained she is currently seeing Faby Frost at [facility] every other week for counseling for her alcohol. SW provided the list of options for drug and alcohol treatment. Patient stated she does not have a vehicle but can normally find a ride to her appointments. SW asked about discharge plan. Patient will be staying with her mother for a little while after discharge. Patient's mother asked about doing a safety plan. SW asked patient if she had any thoughts of harming herself, patient stated no. SW explained the hospital would not complete a written safety plan but [facility] could if patient would need to be screened but without expressing any thought of harming herself or others they would not screen her. SW explained it would be beneficial for her to go to her mother's home after discharge until she felt a bit more stable to be home alone. SW asked if they had any other questions or concerns at this time. Patient and her mother stated they did not. SW provided contact information if they needed to reach her. SW was notified by patient's nurse that the family was wanting information regarding dental care. SW will assist with this. Discharge plan: Home with family
--- NOTE | 2023-09-03 16:55 | NUR ---
PATIENT ASLEEP, RESTING IN BED. PATIENT NOTED TO BE DROWSY, HOWEVER DOES AROUSE TO HER NAME. PATIENTS BP STABLE AND O2 SATURATION 97% WHILE SLEEPING, RESPIRATIONS WNL. CALL LIGHT WITHIN REACH. FALL PRECAUTIONS IN PLACE. BED ALARM ON. COLD CLOTH PLACED TO FOREHEAD (PATIENT STILL SWEATING AT THIS TIME).
[2023-09-03] MEDS ORDERED: Clindamycin 150 MG CAP PO SCH (17:00)
--- NOTE | 2023-09-03 19:40 | NUR ---
Patient resting in bed. Patient able to open eyes vaguley and aknowledge me. Unable to answer any A&O questions at this time. Patient is very drowsy. Skin is slightly moist. No tremors at this time, PERRLA. Assessment complete. IV in left AC infusing without complications. Call light and personal items in reach. Bed in low position and bed alarm on.
[2023-09-03] MEDS ORDERED: Potassium Chloride 100 ML IV SCH (21:45)
[2023-09-04] VITALS (19 sets, daily range): BP systolic 102–123; BP diastolic 71–85; PULSE 94–120; TEMP 98.1–98.9
[2023-09-04 07:50] LABS: BASO % 0.2 % (0.0-2.0); EOS # 0.1 K/mm3 (0.0-0.7); EOS % 1.5 % (0.0-4.0); GRAN # 2.7 K/mm3 (1.4-6.5); GRAN % 49.4 % (42.2-75.2); HEMOGLOBIN 10.2 g/dl (12.5-16.0); LYMPH # 1.9 K/mm3 (1.2-3.4); LYMPH % 34.8 % (20.0-51.0); MEAN CELL VOLUME 104 fl (80.0-100.0); MEAN CORPUSCULAR HEMOGLOBIN 36 pg (27-31); MEAN CORPUSCULAR HGB CONC 35 g/dl (33.0-37.0); MEAN PLATELET VOLUME 10.9 fl (7.4-10.4); MONO # 0.8 K/mm3 (0.1-0.6); MONO % 13.7 % (1.7-9.3); PLATELET COUNT 107 K/mm3 (130-400); RED BLOOD COUNT 2.85 M/mm3 (4.10-5.30); REDCELL DISTRIBUTION WIDTH-CV 13.2 % (11.5-14.5)
[2023-09-04 07:53] LABS: HEMATOCRIT 29.5 % (37.0-47.0)
[2023-09-04 07:56] LABS: CALCIUM 9.3 mg/dL (8.4-10.2); CREATININE, serum 0.62 mg/dL (0.57-1.11); MAGNESIUM 1.9 mg/dL (1.6-2.6); POTASSIUM 3.7 mEq/L (3.5-4.5)
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
[2023-09-04] MEDS ORDERED: AlOH3/diphen/Lidoc/MgOH2/Simet Oral Susp 10 ML UD Syringe PO ONE (09:45)
[2023-09-04] MEDS ORDERED: AlOH3/diphen/Lidoc/MgOH2/Simet Oral Susp 10 ML UD Syringe PO PRN (11:30)
[2023-09-04] MEDS ORDERED: Potassium Bicarbonate/Citrate 20 MEQ Effervescent TAB PO SCH (13:45)
--- NOTE | 2023-09-04 14:05 | NUR ---
home health care social worker met with patient and her parents. SW provided [facility] Resource Guide, Mental Health Resource Guide, [facility] Community Benefit Plan, [facility] information for dental and the [facility] the [facility]. Patient's family only had questions about the medicaid application. PRAITBHA explained she had contacted financial counseling yesterday but she would touch base with them again today to see if they can come visit today. PRATIBHA contacted financial counseling whom reports they would come visit with patient and family in approximately an hour. Discharge plan: Home
--- NOTE | 2023-09-04 16:54 | NUR ---
Pt.'s CIWA scores have improved significantly today compared to yesterday- see CIWA flowsheet. Pt. is still tachycardic w/ HR 90s-100s all day. Otherwise, VS have been WNL. Pt denies pain. Pt. is still on valium taper at this time. Pt. able to shower today. Tremors notably worse when ambulating than at rest. Pt. is ambulating w/ x1 assist w/ walker. Fall precautions in place. Family has been at bedside most of today.
[2023-09-05] VITALS (15 sets, daily range): BP systolic 103–143; BP diastolic 71–97; PULSE 93–112; TEMP 98–98.6
--- NOTE | 2023-09-05 08:53 | NUR ---
Tele called this nurse to report asystole at approximately 0800. Upon entering room, patient sitting on toliet with tele leads in between her legs. Pt has increased diaphoresis overnight while sleeping. Leads replaced after patient returned to bed and patient now in ST. Magic mouth was given prior to breakfast for c/o pain to left side of tongue. Rates 07/26. Seizure precations in place. Fall precautions in place. PCT reports that patient's gait improved from yesterday but still x1 assist with walker. Encouraged patient to get OOB today- sitting up in chair and working with therapy. CIWA completed- does not require intervention per protocol. NS infusing at 75ml/hr to IV site to LAC without s/s complictions.
--- NOTE | 2023-09-05 10:26 | NUR ---
Pt ambulated with physical therapy this morning. Now sitting up in chair. Pt reports that she is moderately agitated and anxious. Demeanor while sitting in chair is calm, pleasant- no fidgeting/restlessness/aggressive behavior noted. CIWA score 5.
--- NOTE | 2023-09-05 10:36 | NUR ---
Order rec'd to d/c IVF.
--- NOTE | 2023-09-05 12:07 | NUR ---
Pt's heart rate continues to be in the 100-120s. Dr. Guzman notified. New orders rec'd. Plan is for patient to discharge tomorrow. Order rec'd to d/c TARAWA. Pt has been scoring 5 today. Pt resting in bed. Fall precations in place.
--- NOTE | 2023-09-05 19:15 | NUR ---
Patient's HR continued to be tachy after administration of first dose of Metoprolol. Dr. Guzman notified. Orders rec'd. Additional 12.5mg Metoprolol administered. Pt sat up in chair a couple times today and ambulated in the hallway this evening with the PCT. Patient pleasant and cooperative. Bedside report given to ILDA Singleton.
[2023-09-06 00:10] VITALS: BP_SYST 125
[2023-09-06 03:59] VITALS: BP 131/91; PULSE 81; TEMP 98.1
[2023-09-06 04:10] VITALS: BP_SYST 131
[2023-09-06 07:31] VITALS: BP 123/89; PULSE 105; TEMP 98.2
--- NOTE | 2023-09-06 07:54 | NUR ---
Assessment complete. Sitting up in bed upon entry to room. Magic Mouth was administered for c/o pain to tongue. Pt now eating breakfast. Seizure Precautions in place. Fall precautions in place. Denies needs at this time.
[2023-09-06 09:46] VITALS: BP_SYST 123
[2023-09-06] MEDS ORDERED: Potassium Bicarbonate/Citrate 20 MEQ Effervescent TAB PO ONE (10:00)
[2023-09-06 11:05] VITALS: BP 126/86; PULSE 107; TEMP 98.4
[2023-09-06] MEDS ORDERED: CLEOCIN HCL300 MG PO (11:35)
[2023-09-06] MEDS ORDERED: FOLIC ACID 11 MG/TA1 PO (11:36)
[2023-09-06] MEDS ORDERED: THIAMINE 1100 MG/TAB PO (11:36)
[2023-09-06] MEDS ORDERED: MULTIPLE VITAMI1 TA5 PO (11:36)
[2023-09-06] MEDS ORDERED: ZOFRAN 4MG T4 MG/TAB PO (11:37)
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
--- NOTE | 2023-09-06 13:08 | NUR ---
Discharge instructions reviewed with patient- verbalizes understanding. INT to LAC d/c'd with cath tip intact. Tele d/c'd. Patient escorted to private vehicle by DUDLEY Hoffmann and discharged home.
== END 2023-09-06 13:10 | disposition home or self-care (01) | DRG 897 ==
LOC: COL.ER 10:32 → MEDICAL 12:40
PROVIDERS: Physician Assistant; ADMIT Internal Medicine
DX: F10.10 Alcohol abuse, uncomplicated (principal); E87.1 Hypo-osmolality and hyponatremia; E87.6 Hypokalemia; D69.6 Thrombocytopenia, unspecified; K02.9 Dental caries, unspecified
CPT/HCPCS: J2060; J3411; J3480; J7030; J7120